=== PATIENT | female | born 1995 | race African-American/Black ===

== ENCOUNTER 2018-03-04 19:29 | Emergency (ER) | payer OTHER ==
[~2018-03-04] VITALS: Ht 162.6 cm; Wt 63.5 kg
[~2018-03-04 19:29] MED LIST: DOXYCYCLINE HY100 MG PO; ZOFRAN4 MG SL
[2018-03-04 20:19] LABS: BILIRUBIN,URINE NEGATIVE (NEGATIVE); CLARITY,URINE SL CLOUDY (CLEAR); COLOR,URINE YELLOW (YELLOW); KETONES,URINE NEGATIVE (NEGATIVE); LEUKOCYTE ESTERASE ,URINE TRACE (NEGATIVE); NITRITE,URINE NEGATIVE (NEGATIVE); PREGNANCY TEST, URINE NEGATIVE (NEGATIVE); PROTEIN,URINE DIPSTICK TRACE (NEGATIVE); URINE UROBILINOGEN 1 mg/dL (0.2 - 1)
[2018-03-04 20:33] LABS: BACTERIA,URINE MANY /HPF; EPITHELIAL CELLS,URINE MANY /LPF; TRANSITIONAL EPI CELLS,URINE FEW
== END 2018-03-04 20:57 | disposition home or self-care (01) ==
LOC: ER 19:29
DX: R42 Dizziness and giddiness (principal); N39.0 Urinary tract infection, site not specified
CPT/HCPCS: 81001; 81025; 87086; 99283

== ENCOUNTER 2018-06-24 08:47 | Emergency (ER) | payer SELFPAY ==
[~2018-06-24] VITALS: Ht 162.6 cm; Wt 63.5 kg
[2018-06-24 11:23] LABS: BILIRUBIN,URINE NEGATIVE (NEGATIVE); CLARITY,URINE SL CLOUDY (CLEAR); COLOR,URINE YELLOW (YELLOW); KETONES,URINE NEGATIVE (NEGATIVE); LEUKOCYTE ESTERASE ,URINE 1+ (NEGATIVE); NITRITE,URINE NEGATIVE (NEGATIVE); PROTEIN,URINE DIPSTICK TRACE (NEGATIVE); URINE UROBILINOGEN 0.2 mg/dL (0.2 - 1)
[2018-06-24 11:25] LABS: PREGNANCY TEST, URINE POSITIVE (NEGATIVE)
[2018-06-24 11:35] LABS: BACTERIA,URINE FEW /HPF; EPITHELIAL CELLS,URINE MODERATE /LPF
--- NOTE | 2018-06-24 19:22 | NUR ---
no answer when called for d/c. [facility] nurse and md notified
== END 2018-06-24 14:00 | disposition home or self-care (01) ==
LOC: ER 08:47
DX: Z32.01 Encounter for pregnancy test, result positive (principal); O23.11 Infections of bladder in pregnancy, first trimester; R10.30 Lower abdominal pain, unspecified
CPT/HCPCS: 81001; 81025; 87086; 99284